=== PATIENT | female | born 1975 | race Caucasian/White ===

== ENCOUNTER 2018-03-23 08:25 | Inpatient (IN) | payer OTHER ==
[~2018-03-23] VITALS: Ht 165.1 cm; Wt 3.2 kg
[2018-03-23] MEDS ORDERED: PRENATABS RX T1 EACH PO (09:03)
== END 2018-03-31 14:15 | DRG 785 ==
LOC: OB/GYN 03-28 02:37 → LDR 03-28 02:37 → OB/GYN 03-28 07:00 → O/R 03-28 10:15 → OB/GYN 03-28 11:21
PROVIDERS: Obstetrics & Gynecology
PROC: 0UL70ZZ Occlusion of Bilateral Fallopian Tubes, Open Approach (ICD-10-PCS; 2018-03-28)
PROC: 4A1HXCZ Monitoring of Products of Conception, Cardiac Rate, External Approach (ICD-10-PCS; 2018-03-28)
PROC: 10D00Z1 Extraction of Products of Conception, Low, Open Approach (ICD-10-PCS; principal; 2018-03-28 07:00)
DX: O82 Encounter for cesarean delivery without indication (principal); Z3A.39 39 weeks gestation of pregnancy; Z37.0 Single live birth; Z30.2 Encounter for sterilization